=== PATIENT | male | born 1995 | race Two or more races ===

== ENCOUNTER 2024-03-12 22:07 | Emergency (ER) | payer MEDICAID, SELFPAY ==
[2024-03-12 22:10] VITALS: BP 136/69; PULSE 100; TEMP 36.7; O2SAT 98; BMI 30.7
--- NOTE | 2024-03-12 23:27 | ED.DENTAL1 ---
HPI - Dental/Oral General Chief complaint: Dental/Oral Stated complaint: TOOTH INFECTION, HEADACHE Time Seen by Provider: 03/12/24 22:52 Source: patient Mode of arrival: walk-in Limitations: no limitations History of Present Illness HPI Narrative: This 28-year-old male presents for evaluation of dental pain with 2 bumps on the side of the tooth where he has a cavity. He was seen by his dentist recently and started on clindamycin. He states that he had a fever yesterday and today has a headache. He has no neck pain or stiffness. He is not drooling. He has an appointment to get the infected tooth filled next week but his dentist told him that he has to be on the antibiotics so that the infection has cleared before he can have any further treatment. He has a generalized frontal headache. He does not have any lymphadenopathy. He does have 2 small apical abscesses adjacent to tooth #30. He denies any chest pain or shortness of breath. He has not had any blurred vision slurred speech or confusion. He has no abdominal pain Related Data Home Medications ?Medication ?Instructions ?Recorded ?Confirmed clindamycin HCl 150 mg capsule 150 mg PO Q12H 03/12/24 03/12/24 hydrocodone 5 mg-acetaminophen 325 1 tab PO Q6H PRN pain 03/12/24 03/12/24 mg tablet Allergies Allergy/AdvReac Type Severity Reaction Status Date / Time No Known Drug Allergies Allergy Verified 03/12/24 22:12 Review of Systems ROS Status of ROS 10 or more systems reviewed and unremarkable except as noted in history and below Exam Narrative Exam Narrative: Vital signs and Nursing Notes reviewed: Patient is afebrile with a normal pulse, blood pressure is normal, he is not hypoxic with pulse ox of 98% on room air General: Awake, alert, oriented, no acute distress, well-appearing male, no respiratory distress HEENT: Normocephalic atraumatic, mucous membranes are moist and pink, eyes are clear, normal conjunctiva, vision is grossly intact, posterior pharynx is normal in appearance, tooth #29 is tender to palpation with 2 adjacent forming abscesses in the buccal mucosa. There is no sign of necrotizing gingivitis. There is no pooling of secretions. There is no swelling of the tongue, uvula or pharyngeal soft tissues Neck: Supple, no meningeal signs, no anterior or posterior cervical lymphadenopathy Chest: Lungs are clear to auscultation with good air entry, there is no wheezing rhonchi or rales appreciated no accessory muscle use, patient is speaking in complete sentences-no chest wall tenderness to palpation CVS: Regular rate and rhythm S1-S2, no murmurs rubs or gallops, pulses are brisk and equal bilaterally Extremities: Moving all extremities, no lower extremity tenderness or swelling noted, negative Homans' sign, pulses are brisk and equal bilaterally Skin: Normal in appearance without rash or pallor, multiple tattoos on all extremities Neuro: No focal deficits Constitutional Vital Signs, click to edit/add: Last Vital Signs Temp 98.1 F 03/12/24 22:10 Pulse 100 H 03/12/24 22:10 Resp 18 03/12/24 22:10 BP 136/69 03/12/24 22:10 Pulse Ox 98 03/12/24 22:10 O2 Del Method Room Air 03/12/24 22:10 Course Vital Signs Vital signs: Vital Signs Temperature 98.1 F 03/12/24 22:10 Pulse Rate 100 H 03/12/24 22:10 Respiratory Rate 18 03/12/24 22:10 Blood Pressure 136/69 03/12/24 22:10 Pulse Oximetry 98 03/12/24 22:10 Oxygen Delivery Method Room Air 03/12/24 22:10 Temperature 98.1 F 03/12/24 22:10 Pulse Rate 100 H 03/12/24 22:10 Respiratory Rate 18 03/12/24 22:10 Blood Pressure 136/69 03/12/24 22:10 Pulse Oximetry 98 03/12/24 22:10 Oxygen Delivery Method Room Air 03/12/24 22:10 MDM - Dental/Oral MDM Narrative Medical decision making narrative: This 28-year-old male who was recently seen by a dentist and is scheduled to have a tooth pulled or filled next week presents for evaluation of right-sided dental pain with a headache. He had a fever yesterday. He has 2 small periapical abscesses adjacent to tooth #29. He has been on clindamycin with clinical improvement in the dental pain but the abscesses have started developing over the past 1 to 2 days. He is well-appearing with stable vital signs. Labs are normal. An IV was placed and he was medicated with IV fluids, Toradol and a dose of clindamycin. On reevaluation he is still feeling fine and feels somewhat better after the Toradol. He will complete his course of clindamycin and follow-up with his dentist for definitive care. Lab Data Labs: Lab Results 03/12/24 Range/Units 23:50 WBC 10.1 (4.0-11.0) 10^3/uL RBC 4.66 L (4.70-6.10) 10^6/uL Hgb 14.5 (14.0-18.0) g/dL Hct 41.9 L (42.0-54.0) % MCV 89.9 (80.0-94.0) fL MCH 31.1 (25.9-34.0) pg MCHC 34.6 (29.9-35.2) g/dL RDW 13.3 (11.0-15.0) % Plt Count 242 (150-450) 10^3/uL MPV 9.4 L (9.5-13.5) fL Neut % (Auto) 50.9 (43.0-75.0) % Lymph % (Auto) 37.7 (20.5-60.0) % [place] % (Auto) 8.8 (1.7-12.0) % Eos % (Auto) 1.9 (0.9-7.0) % Baso % (Auto) 0.5 (0.2-2.0) % Neut # (Auto) 5.1 (1.4-6.5) 10^3/uL Lymph # (Auto) 3.8 (1.2-3.8) 10^3/uL [place] # (Auto) 0.9 H (0.3-0.8) 10^3/uL Eos # (Auto) 0.2 (0.0-0.7) 10^3/uL Baso # (Auto) 0.1 (0.0-0.1) 10^3/uL Abs Immat Gran (auto) 0.02 (0.00-0.03) 10^3/uL Imm/Tot Granulo (auto) 0.2 (0.0-0.5) % Sodium 142 (136-145) mmol/L Potassium 3.9 (3.5-5.1) mmol/L Chloride 104 (98-107) mmol/L Carbon Dioxide 29.5 (21.0-32.0) mmol/L Anion Gap 12.4 BUN 10.0 (7.0-18.0) mg/dL Creatinine 0.82 (0.70-1.30) mg/dL Est GFR ( Amer) >60 (>=60) Est GFR (Non-Af Amer) >60 (>=60) BUN/Creatinine Ratio 12.2 Glucose 82 (74-106) mg/dL Calcium 9.0 (8.5-10.1) mg/dL Discharge Plan Discharge Stand Alone Forms: Work/School Release, Portal Instructions Chief Complaint: Dental/Oral Clinical Impression: Dental abscess Patient Disposition: Home, Self-Care Time of Disposition Decision: 00:27 Condition: Good Prescriptions / Home Meds: No Action clindamycin HCl 150 mg capsule 150 mg PO Q12H hydrocodone-acetaminophen 5-325 mg tablet 1 tab PO Q6H PRN (Reason: pain) Print Language: Malagasy Instructions: Dental Abscess (ED) Additional Instructions: Continue taking your antibiotics and pain medications as needed. Follow-up closely with your dentist. Referrals: LILLIE GREEN [Primary Care Provider] - 1 week
[2024-03-12] MEDS: CLINDAMYCIN PHOSPHATE/D5W 600 MG/50 ML PREMIX 100 MG IV (23:45)
[2024-03-12] MEDS: 0.9 % SODIUM CHLORIDE 1,000 ML 1000 ML IV (23:45)
[2024-03-13 00:01] LABS: Basophils Absolute Auto 0.1 10^3/uL (0.0-0.1); Basophils Percent Auto 0.5 % (0.2-2.0); Eosinophils Absolute Auto 0.2 10^3/uL (0.0-0.7); Eosinophils Percent Auto 1.9 % (0.9-7.0); Hematocrit 41.9 % (42.0-54.0); Hemoglobin 14.5 g/dL (14.0-18.0); Immature Granulocytes Abs Auto 0.02 10^3/uL (0.00-0.03); Immature Granulocytes Pct Auto 0.2 % (0.0-0.5); Lymphocytes Absolute Auto 3.8 10^3/uL (1.2-3.8); Lymphocytes Percent Auto 37.7 % (20.5-60.0); Mean Corpuscular HGB Conc 34.6 g/dL (29.9-35.2); Mean Corpuscular Hemoglobin 31.1 pg (25.9-34.0); Mean Corpuscular Volume 89.9 fL (80.0-94.0); Mean Platelet Volume 9.4 fL (9.5-13.5); Monocytes Absolute Auto 0.9 10^3/uL (0.3-0.8); Monocytes Percent Auto 8.8 % (1.7-12.0); Neutrophils Absolute Auto 5.1 10^3/uL (1.4-6.5); Neutrophils Percent Auto 50.9 % (43.0-75.0); Platelet Count 242 10^3/uL (150-450); Red Blood Count 4.66 10^6/uL (4.70-6.10); Red Cell Distribution Width 13.3 % (11.0-15.0); White Blood Count 10.1 10^3/uL (4.0-11.0)
[2024-03-13 00:10] LABS: Anion Gap 12.4; BUN Creatinine Ratio 12.2; Carbon Dioxide 29.5 mmol/L (21.0-32.0); Chloride 104 mmol/L (98-107); Estimated GFR (African America >60 (>=60); Estimated GFR (Non-African Ame >60 (>=60); Glucose 82 mg/dL (74-106); Potassium 3.9 mmol/L (3.5-5.1); Sodium 142 mmol/L (136-145)
[2024-03-13 00:35] VITALS: BP 120/68; PULSE 76; O2SAT 100
== END 2024-03-13 00:39 | disposition home or self-care (01) ==
PROVIDERS: Emergency Provider Emergency Medicine
DX: K04.7 Periapical abscess without sinus (principal)
CPT/HCPCS: 36415; 80048; 85025; 96365; 99284

== ENCOUNTER 2024-06-11 22:26 | Emergency (ER) | payer MEDICAID, SELFPAY ==
[2024-06-11] VITALS (10 sets, daily range): BP systolic 106–138; BP diastolic 68–87; PULSE 90; TEMP 37.3; O2SAT 95–99; BMI 28.7
--- OUTSIDE RECORDS SUMMARY | 2024-06-11 22:33 | XMS_ITS | CCD ---
Author Organization [facility] Care Team Providers Care Moveman Name Role Phone DR JESSIE PETTIT Admitting Unavailable HODAN, DR ROMAN Consulting Unavailable HODAN, DR ROMAN Attending Unavailable REQUEST, DR NONE LISTED Primary Care Unavaila jin MELENDEZ, DR KELLY Pyle Attending Unavailable REQUEST, DR JEAN PAUL LISTED Primary Care Unavaila jin MELENDEZ, DR KELLY Pyle Admitting Unavailable AL, DR KELLY Pyle Consulting Unavailable NO PCP, NO PCP Primary Care Unavailable ELVIS PUGA Attending Unavailable NO PCP, NO PCP Primary Care Unavailable JOSE HAMILTON Attending Unavailable NO PCP, NO PCP Primary Care Unavailable PAUL TRUJILLO Attending Unavailabl e Problems Active Problems Problem Classification Problem Date Documented Da te Episodic/Chronic Conditions associated with dizziness or vertigo (2 sources) Dizziness and giddiness; Translations: [Dizziness] Onset: 01-17-2024 Episodic Disorders of teeth and jaw (2 sources) Other specified disorders of teeth and supporting structures; Translations: [Toothache] Onset: 03-09-2024 Episodic Syncope (1 source) Syncope and collapse; Translations: [Syncope and collapse] Onset: 01-17-2024 Episodic Unclassified (3 sources) LOW BACK PAIN, UNSPECIFIED; Translations: [LOW BACK PAIN, UNSPECIFIED] Onset: 06-22-2022 Unclassified (1 source) DIZZY Onset: 01-17-2024 Past or Other Problems Problem Classification Problem Date Documented Da te Episodic/Chronic E Codes: Natural/environment (1 source) Exposure to other specified factors, initial encounter; Translations: [EXPOSURE OTHER SPEC FACTORS INITIAL] Onset: 10-09-2021 Episodic Other injuries and conditions due to external causes (4 sources) Foreign body in conjunctival sac, left eye, initial encounter; Translations: [FB CONJUNCT SAC LT EYE INITIAL ENC] Onset: 10-08-2021 Episodic Unclassified (1 source) LOW BACK PAIN, UNSPECIFIED; Translations: [LOW BACK PAIN, UNSPECIFIED] Onset: 06-19-2022 Results Test Name Value Interpretation Reference Range Facil ity CBC AND AUTO DIFFon 01-17-20 24 ABSOLUTE BASOPHIL 0.0 X10E9/L Normal 0.0-0.2 [facility] Comment on above: Performed By: #### C SALAS, CMP #### [facility] ([id number]) [address] [place] [address] 55614 ABSOLUTE NEUTROPHIL 3.5 X10E9/L Normal 1.5-6.6 [facility] Comment on above: Performed By: #### C SALAS, CMP #### [facility] ([id number]) [address] [place] [address] 34080 Basophils/100 WBC (Bld) 0.4 % Normal [facility] Comment on above: Performed By: #### Karina MARINA, CMP #### [facility] ([id number]) [address] [place] [address] 26206 Eosinophils (Bld) [#/Vol] 0.1 10*3/uL Normal 0.0-0.4 [facility] Comment on above: Performed By: #### Karina MARINA, CMP #### [facility] ([id number]) [address] [place] [address] 18490 Eosinophils/100 WBC (Bld) 0.8 % Normal [facility] Comment on above: Performed By: #### C SALAS, CMP #### [facility] ([id number]) [address] [place] [address] 24200 Erythrocyte distribution width (RBC) [Ratio] 13.7 % Normal 11.5-15.0 [facility] Comment on above: Performed By: #### C SALAS, CMP #### [facility] ([id number]) [address] [place] [address] 22326 Hematocrit (Bld) [Volume fraction] 41.1 % Normal 39-49 [facility] Comment on above: Performed By: #### Karina MARINA, CMP #### [facility] ([id number]) [address] [place] [address] 73911 Hemoglobin (Bld) [Mass/Vol] 14.4 g/dL Normal 13.0-17.0 [facility] Comment on above: Performed By: #### C SALAS, CMP #### [facility] ([id number]) [address] [place] [address] 93317 Lymphocytes (Bld) [#/Vol] 3.8 10*3/uL High 1.0-3.5 [facility] Comment on above: Performed By: #### C SALAS, CMP #### [facility] ([id number]) [address] [place] [address] 70596 Lymphocytes/100 WBC (Bld) 47.4 % Normal [facility] Comment on above: Performed By: #### C SALAS, CMP #### [facility] ([id number]) [address] [place] [address] 80962 MCH (RBC) [Entitic mass] 31.3 pg Normal 27-34 [facility] Comment on above: Performed By: #### C SALAS, CMP #### [facility] ([id number]) [address] [place] [address] 35597 MCHC (RBC) [Mass/Vol] 35.1 g/dL Normal 32-36 [facility] Comment on above: Performed By: #### C SALAS, CMP #### [facility] ([id number]) [address] [place] [address] 05289 MCV (RBC) [Entitic vol] 89 fL Normal 80-100 [facility] Comment on above: Performed By: #### C BCA, CMP #### [facility] ([id number]) [address] [place] [address] 25367 Monocytes (Bld) [#/Vol] 0.6 10*3/uL Normal 0-0.9 [facility] Comment on above: Performed By: #### C BCA, CMP #### [facility] ([id number]) [address] [place] [address] 90770 Monocytes/100 WBC (Bld) 7.4 % Normal [facility] Comment on above: Performed By: #### C BCA, CMP #### [facility] ([id number]) [address] [place] [address] 43460 Neutrophils/100 WBC (Bld) 44.0 % Normal [facility] Comment on above: Performed By: #### C BCA, CMP #### [facility] ([id number]) [address] [place] [address] 58944 Platelet mean volume (Bld) [Entitic vol] 7.7 fL Normal 7-12 [facility] Comment on above: Performed By: #### C BCA, CMP #### [facility] ([id number]) [address] [place] [address] 06142 Platelets (Bld) [#/Vol] 260 10*3/uL Normal 150-450 [facility] Comment on above: Performed By: #### C BCA, CMP #### [facility] ([id number]) [address] [place] [address] 56346 RBC COUNT 4.60 X10E12/L Normal 4.10-5.70 [facility] Comment on above: Performed By: #### C BCA, CMP #### [facility] ([id number]) [address] [place] [address] 64098 WBC (Bld) [#/Vol] 8.0 10*3/uL Normal 4.0-11.0 [facility] Comment on above: Performed By: #### C BCA, CMP #### [facility] ([id number]) [address] [place] [address] [place] [address] COMPREHENSIVE METABOLIC PANE Teo 01-17-2024 Albumin [Mass/Vol] 4.5 g/dL Normal 3.2-5.3 [facility] Comment on above: Performed By: #### C BCA, CMP #### [facility] ([id number]) [address] [place] [address] 87681 ALP [Catalytic activity/Vol] 70 U/L Normal 39-130 [facility] Comment on above: Performed By: #### C BCA, CMP #### [facility] ([id number]) [address] [place] [address] 62669 ALT [Catalytic activity/Vol] 43 U/L High 0-40 [facility] Comment on above: Performed By: #### C BCA, CMP #### [facility] ([id number]) [address] [place] [address] 99780 Anion gap [Moles/Vol] 3 mmol/L Low 5-15 [facility] Comment on above: Performed By: #### C BCA, CMP #### [facility] ([id number]) [address] [place] [address] 24671 AST [Catalytic activity/Vol] 25 U/L Normal 0-41 [facility] Comment on above: Performed By: #### C BCA, CMP #### [facility] ([id number]) [address] [place] [address] 50857 Bilirubin [Mass/Vol] 0.4 mg/dL Normal 0.3-1.2 [facility] Comment on above: Performed By: #### C BCA, CMP #### [facility] ([id number]) [address] [place] [address] 80796 Calcium [Mass/Vol] 8.8 mg/dL Normal 8.5-10.5 [facility] Comment on above: Performed By: #### C BCA, CMP #### [facility] ([id number]) [address] [place] [address] 39049 Chloride [Moles/Vol] 105 mmol/L Normal 98-109 [facility] Comment on above: Performed By: #### C BCA, CMP #### [facility] ([id number]) [address] [place] [address] 50247 CO2 [Moles/Vol] 27 mmol/L Normal 22-32 [facility] Comment on above: Performed By: #### C SALAS, CMP #### [facility] ([id number]) [address] [place] [address] 56879 Creatinine [Mass/Vol] 0.99 mg/dL Normal 0.70-1.20 [facility] Comment on above: Result Comment: METH OD TRACEABLE TO IDMS STANDARD Performed By: #### C SALAS, CMP #### [facility] ([id number]) [address] [place] [address] 67488 eGFR (CKD-EPI) NON-RACE DEPENDENT >90 Normal >59 [facility] Comment on above: Result Comment: Reported eGFR is based on the CKD-EPI 2020 equation that does not use a race coefficient. Performed By: #### C SALAS, CMP #### [facility] ([id number]) [address] [place] [address] 27390 Glucose [Mass/Vol] 112 mg/dL High 65-99 [facility] Comment on above: Performed By: #### C BCA, CMP #### [facility] ([id number]) [address] [place] [address] 80061 Potassium [Moles/Vol] 3.5 mmol/L Normal 3.5-5.0 [facility] Comment on above: Performed By: #### C BCA, CMP #### [facility] ([id number]) [address] [place] [address] 98166 Protein [Mass/Vol] 7.6 g/dL Normal 6.0-8.0 [facility] Comment on above: Performed By: #### C BCA, CMP #### [facility] ([id number]) [address] [place] [address] 14424 Sodium [Moles/Vol] 135 mmol/L Normal 134-146 [facility] Comment on above: Performed By: #### C BCA, CMP #### [facility] ([id number]) [address] [place] [address] 30700 Urea nitrogen [Mass/Vol] 19 mg/dL Normal 5-23 [facility] Comment on above: Performed By: #### C BCA, CMP #### [facility] ([id number]) [address] [place] [address] 25725 Vital Signs Date Time Vital Sign Value Performing Clinician Lissethi nino 05-09-2024 17:06-0400 Body height 170.18 cm [facility] 05-09-2024 17:06-0400 Body mass index (BMI) [Ratio] 28.8 kg/m2 [facility] 05-09-2024 17:06-0400 Body temperature 98.3 [degF] [facility] 05-09-2024 17:06-0400 Body weight 83.46 kg [facility] 05-09-2024 17:06-0400 Diastolic blood pressure 70 mm[Hg] [facility] 05-09-2024 17:06-0400 Heart rate 86 /min [facility] 05-09-2024 17:06-0400 Respiratory rate 18 /min [facility] 05-09-2024 17:06-0400 SaO2% (BldA) [Mass fraction] 98 % [facility] 05-09-2024 17:06-0400 Systolic blood pressure 133 mm[Hg] [facility] Encounters Encounter Date Encounter Type Care Provider Facility Start: 05-09-2024 End: 05-09-2024 ambulatory [facility] Work Phone: Start: 05-09-2024 End: 05-09-2024 Patient encounter procedure [facility] Work Phone: Start: 03-11-2024 End: 03-11-2024 Emergency department patient visit NO PCP NO PCP [facility] Start: 03-09-2024 End: 03-10-2024 Emergency department patient visit NO PCP NO PCP [facility] Start: 01-17-2024 End: 01-17-2024 Emergency department patient visit NO PCP NO PCP [facility] Start: 06-19-2022 End: 06-19-[address] JESSIE PETTIT Facility:[facility] Start: 10-08-2021 End: 10-08-[address] KELLY MELENDEZ Facility:[facility] Payers Date Payer Category Payer Medicaid [id number] 1995 Unknown [id number] 1995 Unknown [id number] [id number] 1996 Unknown [id number] [id number] 1996 Unknown [id number] 2.16.8 [id number] 1996 Unknown [id number] 2.16.8 [id number] 1958 Self-pay [id number] 1958 Unknown [id number] Social History Date Type Detail Facility Start: 05-09-2024 [facility] Start: 1995 Sex Assigned At Male F [facility] Evaluation note Note Date & Type Note Facility Evaluation note No assessment information availa ble [facility] Work Phone: Summary Purpose Family History No Family History Records FoundNo Family History Records Found Advance Directives Advance Directive Response Recorded Date/ Time Advance Directives No May 09, 2024 4:57pm Chief Complaint and Reason for Visit Chief Complaint Cough, congestion Additional Source Comments (unrecognized sect ion and content) No Status Records FoundNo Status Records Found INFORMATION SOURCE (unrecogn ized section and content) DATE CREATED AUTHOR 07/07/2022 [facility] DATE CREATED AUTHOR AUTHOR'S LULY BOYCE 03/12/2024 [facility] Care Teams (unrecognized sec tion and content) Team Status: Active Member Role Status Dates NON STAFF Primary Care Provider Active Team Status: Inactive Member Role Status Dates Samira Castrejon APRN Attending Provider Active S tart: May 09, 2024 End: May 09, 2024 NON STAFF Primary Care Provider Active Start: May 09, 2024 End: May 09, 2024 Goals (unrecognized section and content) Goals may be documented in a n alternate section FOR RECORDS PERTAINING TO PATIENTS WHO ARE OR HAVE BEEN ENROLLED IN A CHEMICAL DEPENDENCY/SUBSTANCEABUSE PROGRAM, SOME INFORMATION MAY BE OMITTED. This clinical summary was aggregated from multiple sources. Caution should be exercised in using it in the provision of clinical care. This summary normalizes information from multiple sources, and as a consequence, information in this document may materially change the coding, format and clinical context of patient data. In addition, data may be omitted in some cases. CLINICAL DECISIONS SHOULD BE BASED ON THE PRIMARY CLINICAL RECORDS. [employer] provides no warranty or guarantee of the accuracy or completeness of information in this document.
--- NOTE | 2024-06-11 23:14 | XR_ITS ---
The [address] [address] Patient Name: LINDA HEWITT MRN: [id number] date: 1995 Sex: M Assigned Patient Location: ER Current Patient Location: ER Accession/Order Number: [id number] Exam Date: 06/11/2024 23:40 Report Date: 06/12/2024 00:37 At the request of: JANAE NEELY Procedure: XR chest 1V CXR HISTORY: Shortness of breath. COMPARISON: None. TECHNIQUE: 1 view of the chest submitted for review. FINDINGS: Lines and tubes: None Lungs are hyperaerated. No acute infiltrate. No effusion. The cardiac silhouette measures within normal. Pulmonary vascularity is unremarkable. Osseous structures are normal for age. XR/XR chest 1V IMPRESSION: No plain film evidence for acute cardiopulmonary disease. Electronically authenticated by: REYNALDO MELENDEZ Date: 06/12/2024 00:37
--- NOTE | 2024-06-11 23:14 | CT_ITS ---
The [address] [address] Patient Name: LINDA HEWITT MRN: [id number] date: 1995 Sex: M Assigned Patient Location: ER Current Patient Location: ER Accession/Order Number: [id number] Exam Date: 06/11/2024 23:40 Report Date: 06/12/2024 00:43 At the request of: JANAE NEELY Procedure: CT head/brain wo con EXAM: CT head/brain wo con HISTORY: headache COMPARISON: None. TECHNIQUE: Axial CT images of the head without contrast. Coronal and sagittal reformats were provided. FINDINGS: Acute: No hemorrhage, herniation, or hydrocephalus. No evidence of recent infarct. Brain: Brain parenchyma within normal limits in density and volume for age. Vessels: No abnormal intravascular density to suggest thrombosis. Bones: No suspicious lesion in the calvarium or skull base. Other: Extracranial soft tissues unremarkable. CT/CT head/brain wo con IMPRESSION: No acute intracranial findings. Electronically authenticated by: ROZ RICE Date: 06/12/2024 00:43
--- NOTE | 2024-06-11 23:16 | ED_ITS ---
HPI HPI - General Adult General Chief complaint: Headache Stated complaint: HEADACHE Time Seen by Provider: 06/11/24 23:08 Source: patient Mode of arrival: walk-in Limitations: no limitations History of Present Illness HPI narrative: patient ill for past 4 weeks. Complaints of productive cough. States he was seen by his PCP and prescribed antibiotic but really did not help. Has still felt ill. Tonight while walking thru [employer] about 6 hours ago developed right temporal headache. About an hour later developed whole body aches and felt dizzy. Dizziness occurs when he is up and walking. The headache has improved. he is currently not dizzy while lying on the stretcher. He got up to walk to the bathroom and states the headache was increasing again Related Data Home Medications ?Medication ?Instructions ?Recorded ?Confirmed No Known Home Medications 06/11/24 06/11/24 Allergies Allergy/AdvReac Type Severity Reaction Status Date / Time No Known Drug Allergies Allergy Verified 06/11/24 22:33 Opioid HPI Opioid Management Most Recent Opioid Data: Last Pain Scale 6 06/11/24 23:37 06/11/24 Review of Systems ROS Status of ROS 10 or more systems reviewed and unremark able except as noted in history and below PFSH PFSH Social History Little interest or pleasure in doing things: not at all Feeling down, depressed, or hopeless: not at all Exam Constitutional Vital Signs, click to edit/add: Last Vital Signs Temp 99.1 F 06/11/24 22:33 Pulse 90 06/11/24 22:33 Resp 14 06/11/24 22:33 BP 138/86 06/11/24 22:33 Pulse Ox 97 06/11/24 22:33 O2 Del Method Room Air 06/11/24 22:33 Common normals: no apparent distress, average body habitus, oriented x3, no limitations, healthy appearing, alert and well nourished [facility] Common normals: normocephalic and head/scalp atraumatic Other: right TM injected and bulging Eye Common normals: PERRL and EOMs intact bilaterally Other: no photophobia Respiratory Common normals: normal respiratory effort, no retractions, no use of accessory muscles and clear to auscultation bilaterally Cardio Common normals: regular rate, regular rhythm, S1 normal heart sound and S2 normal heart sound Extremity Common normals: normal to inspection and full ROM Neuro Common normals: oriented x3, CN's II-XII intact bilaterally, moves all extremities and no focal motor deficits Psych Appearance: grossly normal Course Vital Signs Vital signs: Vital Signs Temperature 99.1 F 06/11/24 22:33 Pulse Rate 90 06/11/24 22:33 Respiratory Rate 14 06/11/24 22:33 Blood Pressure 138/86 06/11/24 22:33 Pulse Oximetry 97 06/11/24 22:33 Oxygen Delivery Method Room Air 06/11/24 22:33 Temperature 99.1 F 06/11/24 22:33 Pulse Rate 90 06/11/24 22:33 Respiratory Rate 14 06/11/24 22:33 Blood Pressure 138/86 06/11/24 22:33 Pulse Oximetry 97 06/11/24 22:33 Oxygen Delivery Method Room Air 06/11/24 22:33 Medical Decision Making MDM Narrative Medical decision making narrative: patient presents with mild pain right side of his face/zygoma area. Sinuses nontender. Complains of body aches, headaches and dizziness when he is upright and walking. No dizziness while sitting or lying down. low grade fever. Right TM infected. COVID19 and influenza neg. cxray neg. CT brain and sinuses neg except for dental caries patient given Toradol and headache is nearly completely gone. Advised of working diagnosis of URI to explain his cough and right otitis which is likely cause of right sided headache and dizziness when upright. given dose of augmentin and discharged. Encouraged to drink plenty of fluids Lab Data Labs: Lab Results 06/11/24 06/11/24 06/11/24 Range/Units 23:19 23:27 23:33 WBC 11.8 H (4.0-11.0) 10^3/uL RBC 5.40 (4.70-6.10) 10^6/uL Hgb 16.7 (14.0-18.0) g/dL Hct 48.1 (42.0-54.0) % MCV 89.1 (80.0-94.0) fL MCH 30.9 (25.9-34.0) pg MCHC 34.7 (29.9-35.2) g/dL RDW 13.1 (11.0-15.0) % Plt Count 248 (150-450) 10^3/uL MPV 9.8 (9.5-13.5) fL Neut % (Auto) 60.5 (43.0-75.0) % Lymph % (Auto) 26.1 (20.5-60.0) % [place] % (Auto) 11.8 (1.7-12.0) % Eos % (Auto) 1.1 (0.9-7.0) % Baso % (Auto) 0.3 (0.2-2.0) % Neut # (Auto) 7.1 H (1.4-6.5) 10^3/uL Lymph # (Auto) 3.1 (1.2-3.8) 10^3/uL [place] # (Auto) 1.4 H (0.3-0.8) 10^3/uL Eos # (Auto) 0.1 (0.0-0.7) 10^3/uL Baso # (Auto) 0.0 (0.0-0.1) 10^3/uL Abs Immat Gran (auto) 0.02 (0.00-0.03) 10^3/uL Imm/Tot Granulo (auto) 0.2 (0.0-0.5) % Sodium 139 (136-145) mmol/L Potassium 3.9 (3.5-5.1) mmol/L Chloride 102 (98-107) mmol/L Carbon Dioxide 29.8 (21.0-32.0) mmol/L Anion Gap 11.1 BUN 18.0 (7.0-18.0) mg/dL Creatinine 1.13 (0.70-1.30) mg/dL Est GFR ( Amer) >60 (>=60 mL/min/1.73m^2) Est GFR (Non-Af Amer) >60 (>=60 mL/min/1.73m^2) BUN/Creatinine Ratio 15.9 Glucose 87 (74-106) mg/dL Calcium 9.3 (8.5-10.1) mg/dL Urine Color Lt. yellow (YELLOW) Urine Clarity Clear (CLEAR) Urine pH 7.0 (5.0-9.0) Ur Specific Burke 1.010 (1.005-1.025) Urine Protein Negative (NEG/TRACE) mg/dL Urine Glucose (UA) Negative (NEGATIVE) mg/dL Urine Ketones Negative (NEGATIVE) mg/dL Urine Occult Blood Negative (NEGATIVE) Urine Nitrite Negative (NEGATIVE) Urine Bilirubin Negative (NEGATIVE) Urine Urobilinogen 0.2 (0.2-1.0) EU/dL Ur Leukocyte Esterase Negative (NEGATIVE) Influenza Type A Ag Negative Influenza Type B Ag Negative SARS-CoV-2 Ag (CV2AG) Negative (NEGATIVE) Discharge Plan Discharge Chief Complaint: Headache Clinical Impression: Headache, Acute right otitis media, Dizziness Patient Disposition: Home, Self-Care Prescriptions / Home Meds: No Action No Known Home Medications Print Language: Romanian Instructions: Vertigo (ED), Dizziness (ED), General Headache (ED) Additional Instructions: drink plenty of fluids and follow up with your doctor in the next couple of days for recheck Referrals: LILLIE GREEN [Primary Care Provider] - 1 week
--- NOTE | 2024-06-11 23:18 | CT_ITS ---
The [address] [address] Patient Name: LINDA HEWITT MRN: [id number] date: 1995 Sex: M Assigned Patient Location: ER Current Patient Location: ER Accession/Order Number: [id number] Exam Date: 06/11/2024 23:40 Report Date: 06/12/2024 00:48 At the request of: JANAE NEELY Procedure: CT facial bones wo con EXAM: CT facial bones wo con HISTORY: sinus headache COMPARISON: None. TECHNIQUE: Axial CT images of the face were obtained without contrast. Coronal and sagittal reformats were provided. FINDINGS: Bones: No suspicious lesion in the facial bones. Nasal bones, orbital dooley, zygomatic arches, paranasal sinuses, pterygoid plates, and mandible are intact. Mucosa: No mass in the nasal cavity, nasopharynx, oral cavity, or oropharynx. Oral cavity is partially obscured by dental artifact. Minimal maxillary sinus mucosal thickening. Glands: Normal bilateral parotid and submandibular glands. No evidence of sialolithiasis. Nodes: No pathologically enlarged or necrotic cervical lymph nodes (suprahyoid). Vessels: Vascular structures are unremarkable. No carotid space mass. Other: Periapical lucency of the right second most posterior mandibular molar. CT/CT facial bones wo con IMPRESSION: 1. No facial fracture. Unremarkable facial soft tissues. 2. Right mandibular molar periapical lucency compatible with periodontal disease. Electronically authenticated by: ROZ RICE Date: 06/12/2024 00:48
[2024-06-11] MEDS: KETOROLAC TROMETHAMINE 30 MG/ML VIAL IVP (23:37)
[2024-06-11] MEDS: 0.9 % SODIUM CHLORIDE 1,000 ML 999 ML IV (23:37)
[2024-06-11 23:40] LABS: Basophils Percent Auto 0.3 % (0.2-2.0); Eosinophils Absolute Auto 0.1 10^3/uL (0.0-0.7); Eosinophils Percent Auto 1.1 % (0.9-7.0); Hematocrit 48.1 % (42.0-54.0); Hemoglobin 16.7 g/dL (14.0-18.0); Immature Granulocytes Abs Auto 0.02 10^3/uL (0.00-0.03); Immature Granulocytes Pct Auto 0.2 % (0.0-0.5); Lymphocytes Absolute Auto 3.1 10^3/uL (1.2-3.8); Lymphocytes Percent Auto 26.1 % (20.5-60.0); Mean Corpuscular HGB Conc 34.7 g/dL (29.9-35.2); Mean Corpuscular Hemoglobin 30.9 pg (25.9-34.0); Mean Corpuscular Volume 89.1 fL (80.0-94.0); Mean Platelet Volume 9.8 fL (9.5-13.5); Monocytes Absolute Auto 1.4 10^3/uL (0.3-0.8); Monocytes Percent Auto 11.8 % (1.7-12.0); Neutrophils Absolute Auto 7.1 10^3/uL (1.4-6.5); Neutrophils Percent Auto 60.5 % (43.0-75.0); Platelet Count 248 10^3/uL (150-450); Red Cell Distribution Width 13.1 % (11.0-15.0); White Blood Count 11.8 10^3/uL (4.0-11.0)
[2024-06-11 23:43] LABS: Bilirubin Urine NEGATIVE (NEGATIVE); Blood Urine NEGATIVE (NEGATIVE); Clarity Urine CLEAR (CLEAR); Color Urine LT. YELLOW (YELLOW); Glucose Urine UA NEGATIVE (NEGATIVE); Ketones Urine NEGATIVE (NEGATIVE); Leukocyte Esterase Urine NEGATIVE (NEGATIVE); Nitrite Urine NEGATIVE (NEGATIVE); Protein Urine NEGATIVE (NEG/TRACE); Urobilinogen Urine 0.2 EU/dL (0.2-1.0)
[2024-06-11 23:45] LABS: Urine Microscopic Indicated NO
[2024-06-11 23:49] LABS: Anion Gap 11.1; BUN Creatinine Ratio 15.9; Calcium 9.3 mg/dL (8.5-10.1); Carbon Dioxide 29.8 mmol/L (21.0-32.0); Chloride 102 mmol/L (98-107); Estimated GFR (African America >60 (>=60 mL/min/1.73m^2); Estimated GFR (Non-African Ame >60 (>=60 mL/min/1.73m^2); Glucose 87 mg/dL (74-106); Potassium 3.9 mmol/L (3.5-5.1); Sodium 139 mmol/L (136-145)
[2024-06-11 23:52] LABS: Influenza Virus A Antigen Negative; Influenza Virus B Antigen Negative; Internal Control Within Normal Limits; SARS-CoV-2 Ag NEGATIVE (NEGATIVE)
[2024-06-12] VITALS (9 sets, daily range): BP systolic 115–126; BP diastolic 64–70; PULSE 82; TEMP 36.9; O2SAT 95–98
--- NOTE | 2024-06-12 01:17 | PC.NURSE ---
Medications not given. Pt left before receiving meds.
== END 2024-06-12 01:10 | disposition home or self-care (01) ==
PROVIDERS: Emergency Provider Internal Medicine
DX: R51.9 Headache, unspecified (principal); R42 Dizziness and giddiness; H66.91 Otitis media, unspecified, right ear
CPT/HCPCS: 36415; 70450; 70486; 71045; 80048; 81003; 85025; 87804; 87811; 96361; 96374; 99285; J1885